=== PATIENT | female | born 1960 | race Caucasian/White ===

== ENCOUNTER → 2022-04-21 | Outpatient (CLI) | payer OTHER ==
[~2022-04-21] MED LIST: AMLODIPINE-BEN1 EAC4 PO; CELEXA 20MG TAB20 MG PO; CYCLOBENZAPRINE5 MG PO; GABAPENTIN800 MG PO; HYDROCHLOROTHIA25 MG PO; NABUMETONE500 MG PO; NORCO 5-325 TA1 EACH PO; PHENTERMINE H37.5 M1 PO; POTASSIUM CHLO20 ME1 PO
== END ==
LOC: KOH-I 08:50
DX: M79.672 Pain in left foot (principal); M79.671 Pain in right foot; M21.42 Flat foot [pes planus] (acquired), left foot; M21.41 Flat foot [pes planus] (acquired), right foot
CPT/HCPCS: 73630